=== PATIENT | female | born 1975 | race Caucasian/White ===

== ENCOUNTER → 2019-10-14 06:00 | Outpatient (REF) | payer BC, SELFPAY | LOC: ANHLAB 06:00 | PROVIDERS: PCP Internal Medicine; Visit Provider Nurse Practitioner | DX: L98.9 Disorder of the skin and subcutaneous tissue, unspecified (principal) | CPT/HCPCS: 88305; 88342 ==

== ENCOUNTER 2019-12-09 10:36 | Outpatient (CLI) | payer BC, SELFPAY ==
--- NOTE | ~2019-12-09 | MM_ITS ---
EXAMINATION: MM scrn eren implant BI w sanjuanita HISTORY: Screening mammogram TECHNIQUE: Craniocaudal and mediolateral oblique 3-D tomosynthesis images with implant displacement a nd synthetic 2-D images were generated. Craniocaudal and mediolateral oblique views of the breasts wi thout implant displacement were obtained using full field digital mammography. CAD analysis was submi tted and interpreted. COMPARISON: 08/20/2018, 08/21/2017, 04/02/2017, 12/09/2015 BREAST PARENCHYMAL COMPOSITION: The breasts are extremely dense, which lowers the sensitivity of mamm ography. FINDINGS: RIGHT BREAST: An asymmetry is present in the middle third of the inner breast best appreciated 4 cm f rom the nipple on the implant displaced craniocaudal tomosynthesis image 22/45. LEFT BREAST: There is no evidence of suspicious mass, calcification, or architectural distortion to s uggest malignancy. There has been no significant interval change. IMPRESSION: 1. Right breast asymmetry on the craniocaudal view. 2. Additional mammographic views and possible breast ultrasound are recommended. BI-RADS Category 0: Incomplete: Needs additional imaging evaluation. Reviewed, dictated and finalized at location A. IMPRESSION: 1. Right breast asymmetry on the craniocaudal view. 2. Additional mammographic views and possible breast ultrasound are recommended . BI-RADS Category 0: Incomplete: Needs additional imaging evaluation.
== END 2019-12-09 10:37 | disposition home or self-care (01) ==
LOC: ANHIMG 10:38
PROVIDERS: PCP Internal Medicine; Visit Provider Obstetrics & Gynecology
DX: Z12.31 Encounter for screening mammogram for malignant neoplasm of breast (principal); R92.8 Other abnormal and inconclusive findings on diagnostic imaging of breast
CPT/HCPCS: 77063; 77067

== ENCOUNTER 2019-12-30 11:37 | Outpatient (CLI) | payer BC, SELFPAY ==
--- NOTE | ~2019-12-30 | MMUS_ITS ---
EXAMINATION: MM diagnostic mammo implant RT, US breast RT limited HISTORY: Right breast asymmetry on screening mammogram TECHNIQUE: Additional 3-D tomosynthesis images of the right breast were performed and synthetic 2-D i mages were generated. CAD analysis was submitted and interpreted. High resolution limited right breas t ultrasound was performed. COMPARISON: 12/09/2019, 08/20/2018, 04/02/2017, 12/09/2015 FINDINGS: MAMMOGRAPHIC FINDINGS: There is a 7 mm oval, obscured, equal density mass in the middle third of the breast at the 4:00 loca tion 4 cm from the nipple. No suspicious calcification or architectural distortion are identified. ULTRASOUND: There is an 11 mm x 3 mm cyst at the 4:00 location 2 cm from the nipple corresponding to the mammogra phic finding in question. In addition, smaller complicated cysts are seen at the 12:00 and 1:00 locat ions 2 cm from the nipple. No suspicious cystic or solid mass is identified. The sonographically dete cted cysts have an appearance similar to those seen on left breast ultrasound performed at 2015. IMPRESSION: 1. Simple and complicated cysts of the right breast. No mammographic or sonographic evidence of malig aleah. 2. Recommend routine screening mammography in one year. BI-RADS Category 2: Benign finding(s). Reviewed, dictated and finalized at location A. IMPRESSION: 1. Simple and complicated cysts of the right breast. No mammographic or sonogra phic evidence of malignancy. 2. Recommend routine screening mammography in one year. BI-RADS Category 2: Benign finding(s).
== END 2019-12-30 11:38 | disposition home or self-care (01) ==
PROVIDERS: PCP Internal Medicine; Visit Provider Obstetrics & Gynecology
DX: R92.8 Other abnormal and inconclusive findings on diagnostic imaging of breast (principal)
CPT/HCPCS: 76642; 77065

== ENCOUNTER → 2020-02-17 08:45 | Outpatient (REF) | payer BC, SELFPAY | LOC: ANHLAB 08:45 | PROVIDERS: PCP Internal Medicine; Visit Provider Nurse Practitioner | DX: C44.319 Basal cell carcinoma of skin of other parts of face (principal) | CPT/HCPCS: 88305 ==

== ENCOUNTER → 2020-03-15 07:50 | Outpatient (REF) | payer BC, SELFPAY | LOC: ANHLAB 07:50 | PROVIDERS: PCP Internal Medicine; Visit Provider Nurse Practitioner | DX: C44.319 Basal cell carcinoma of skin of other parts of face (principal) | CPT/HCPCS: 88305; 88331 ==

== ENCOUNTER → 2021-02-15 08:24 | Outpatient (REF) | payer BC, SELFPAY | LOC: ANHLAB 08:24 | PROVIDERS: PCP Internal Medicine; Visit Provider Nurse Practitioner | DX: C44.612 Basal cell carcinoma of skin of right upper limb, including shoulder (principal) | CPT/HCPCS: 88305 ==

== ENCOUNTER → 2021-03-29 13:32 | Outpatient (REF) | payer BC, SELFPAY | LOC: ANHLAB 13:32 | PROVIDERS: PCP Internal Medicine; Visit Provider Nurse Practitioner | DX: D22.5 Melanocytic nevi of trunk (principal) | CPT/HCPCS: 88305 ==

== ENCOUNTER → 2021-04-18 07:30 | Outpatient (REF) | payer BC, SELFPAY | LOC: ANHLAB 07:30 | PROVIDERS: PCP Internal Medicine; Visit Provider Nurse Practitioner | DX: C44.319 Basal cell carcinoma of skin of other parts of face (principal); C44.612 Basal cell carcinoma of skin of right upper limb, including shoulder | CPT/HCPCS: 88305; 88331 ==

== ENCOUNTER 2021-05-31 11:12 | Outpatient (CLI) | payer BC, SELFPAY ==
--- NOTE | ~2021-05-31 | MMUS_ITS ---
EXAMINATION: MM diag eren implant BI w sanjuanita, US breast BI complete HISTORY: Left breast lump TECHNIQUE: Additional 3-D tomosynthesis images of the breasts were performed and synthetic 2-D images were generated. CAD analysis was submitted and interpreted. High resolution complete bilateral breas t ultrasound was performed. COMPARISON: Comparison to multiple prior studies sequentially, with oldest reviewed study dated 11/2016. BREAST PARENCHYMAL COMPOSITION: The breasts are extremely dense, which lowers the sensitivity of mamm ography. FINDINGS: MAMMOGRAPHIC FINDINGS: There are no suspicious masses, calcifications or architectural distortion in the right breast to sug gest malignancy. There is a mass in the mid outer aspect of the left breast near the area of palpable concern measuring approximately 1 cm. No suspicious calcifications or architectural distortion. ULTRASOUND: Right breast ultrasound: There are multiple cysts of the right breast, largest at 10:00, 6 cm from th e nipple measuring 9 mm maximum dimension. Bilateral breast implants are present. Left breast ultrasound: There are multiple simple and complicated cysts of the left breast, largest a t 12:00, 3 cm from the nipple measuring 9 mm. At 2:00 near the nipple there is an oval hypoechoic mas s with mixed posterior attenuation measuring 11 x 10 x 5 mm, likely benign complicated cyst. Cyst at 12:00, 3 cm from the nipple measuring 9 mm may correspond to the mammographic abnormality. IMPRESSION: 1. Probable benign left breast mass at 2:00 near the nipple measuring 11 mm maximum dimension. 2. Recommend 6 month follow-up diagnostic left mammogram and ultrasound. BI-RADS category 3, probably benign findings. Reviewed, dictated and finalized at location A. IMPRESSION: 1. Probable benign left breast mass at 2:00 near the nipple measuring 11 mm max imum dimension. 2. Recommend 6 month follow-up diagnostic left mammogram and ultrasound. BI-RADS category 3, probably benign findings.
== END 2021-05-31 11:13 | disposition home or self-care (01) ==
PROVIDERS: PCP Internal Medicine; Visit Provider Clinical Nurse Specialist
DX: N63.20 Unspecified lump in the left breast, unspecified quadrant (principal); R92.8 Other abnormal and inconclusive findings on diagnostic imaging of breast
CPT/HCPCS: 76641; 77062; 77066; G0279

== ENCOUNTER → 2021-07-04 16:04 | Outpatient (REF) | payer BC, SELFPAY | LOC: ANHLAB 16:04 | PROVIDERS: PCP Internal Medicine; Visit Provider Nurse Practitioner | DX: C44.529 Squamous cell carcinoma of skin of other part of trunk (principal) | CPT/HCPCS: 88305; 88342 ==

== ENCOUNTER → 2021-08-29 11:11 | Outpatient (REF) | payer BC, SELFPAY | LOC: ANHLAB 11:11 | PROVIDERS: PCP Internal Medicine; Visit Provider Nurse Practitioner | DX: C44.529 Squamous cell carcinoma of skin of other part of trunk (principal) | CPT/HCPCS: 88305; 88331 ==

== ENCOUNTER → 2021-08-30 15:53 | Outpatient (REF) | payer BC, SELFPAY | LOC: ANHLAB 15:53 | PROVIDERS: PCP Internal Medicine; Visit Provider Nurse Practitioner | DX: C44.602 Unspecified malignant neoplasm of skin of right upper limb, including shoulder (principal) | CPT/HCPCS: 88305 ==

== ENCOUNTER → 2021-10-24 10:11 | Outpatient (REF) | payer BC, SELFPAY | LOC: ANHLAB 10:11 | PROVIDERS: PCP Internal Medicine; Visit Provider Nurse Practitioner | DX: C44.319 Basal cell carcinoma of skin of other parts of face (principal) | CPT/HCPCS: 88305; 88331 ==

== ENCOUNTER 2022-08-08 07:00 | Outpatient (NON) | payer BC, SELFPAY | END 2022-08-08 07:01 | disposition home or self-care (01) | LOC: ANHLAB 08-09 15:10 | PROVIDERS: PCP Internal Medicine; Visit Provider Nurse Practitioner | DX: D22.5 Melanocytic nevi of trunk (principal) | CPT/HCPCS: 88305; 88342 ==

== ENCOUNTER 2022-08-29 13:05 | Outpatient (CLI) | payer BC, SELFPAY ==
[2022-08-29 19:18] LABS: Magnesium 2.1 mg/dL (1.6-2.3)
== END 2022-08-29 13:06 | disposition home or self-care (01) ==
LOC: ANHGOSHLAB 13:06
PROVIDERS: PCP Internal Medicine; Visit Provider Clinical Nurse Specialist
DX: E83.41 Hypermagnesemia (principal)
CPT/HCPCS: 36415; 83735

== ENCOUNTER 2022-09-05 14:23 | Outpatient (NON) | payer BC, SELFPAY | END 2022-09-05 14:24 | disposition home or self-care (01) | LOC: ANHLAB 09-06 14:23 | PROVIDERS: PCP Internal Medicine; Visit Provider Nurse Practitioner | DX: R13.10 Dysphagia, unspecified (principal) | CPT/HCPCS: 88305 ==

== ENCOUNTER 2022-10-17 00:49 | Day surgery (SDC) | payer BC, SELFPAY ==
[2022-10-03 15:04] VITALS: BMI 17.9
[2022-10-17 08:12] VITALS: BP 112/55; PULSE 72; RESP 18; TEMP 36.6; O2SAT 100; BMI 17.6
[2022-10-17] MEDS: LACTATED RINGERS 1,000 ML 150 ML IV CONT (08:17)
--- NOTE | 2022-10-17 08:41 | WPDANESEPPF ---
Anes - Initial Pre Proc Eval Procedure: Operation Date: 10/17/22 09:15 Proposed Procedures p Screening Colonoscopy - Eh Horton MD Date/Time: 10/17/22 08:41 Surgeon: Eh Horton MD Pre Op Diagnosis: neoplasm screening Patient Data Age: 47 Gender: F Height: 1.65 m Weight: 48.2 kg Last Vital Signs Temp 97.9 F 10/17/22 08:12 Pulse 72 10/17/22 08:12 Resp 18 10/17/22 08:12 BP 112/55 L 10/17/22 08:12 Pulse Ox 100 10/17/22 08:12 O2 Del Method Room Air 10/17/22 08:12 Allergies Allergy/AdvReac Type Severity Reaction Status Date / Time Sulfa (Sulfonamide Allergy Unknown Unknown Verified 10/17/22 08:11 Antibiotics) Home Medications Medication Instructions Recorded Confirmed Type cholecalciferol (vitamin D3) 125 125 mcg PO DAILY 10/03/22 10/03/22 History mcg (5,000 unit) tablet multivitamin with minerals-folic 1 tablet PO DAILY 10/03/22 10/03/22 History acid 0.4 mg tablet Patient hx anesthesia problems: none Family hx anesthesia problems: none Results Review: All pre-operative results and documents have been reviewed as part of the pre-operative evaluation. [facility] Past Medical History Medical History Basal cell carcinoma (BCC) Cyst of left ovary Migraine Thrombocytosis Surgical History Surgical History H/O section History of breast lump/mass excision Family History Family History Mother Family history of thyroid disease Hypertension Family history of coronary artery disease Depression Sibling Patient's brother is in good health Father Family history of coronary artery disease Acute myocardial infarction Other Family history of heart disease in male family member before age 55 Social History Social History (Updated 08/22/22 @ 07:59 by Dina Roach CMA) Smoking status: Never smoker Second hand tobacco smoke exposure: No Alcohol intake: current Drinks per week: 4 Substance use type: does not use Lack of Transportation: No Lack of Food: Never True Current Housing: I Have Housing Concerned About Future Housing: No Difficulty Paying Gas/Electric Bills: No Difficulty Paying for Meds: No Currently Unemployed: No Education: Bachelor's Degree Difficulty w/ Childcare or Family Care: No Living arrangements: with family Spiritual care concerns: No Anes - Eval Final PreProcedure Day of Procedure 10/17/22 08:41 Patient weight: normal Heart: regular rate and rhythm Lungs: clear to auscultation Airway: Mallampati scale class II Neurological: alert and oriented Last oral intake: >/= 8 hours ASA classification: II Emergent: no Anesthetic plan: proceed Anesthesia type and monitoring: general GIVS and standard monitoring Results Review: All pre-operative results and documents have been reviewed as part of the pre-operative evaluation. Informed Consent: The patient's anesthetic plan and its attendant risks and benefits were discussed with the patient/family/POA. Questions were solicited and answers provided to the satisfaction of the patient/family/POA.
--- NOTE | 2022-10-17 09:06 | PM.HPGS ---
History of Present Illness History of Present Illness Consent: Risks, benefits, and alternatives have been discussed and questions answered. Patient agrees to proceed with procedure. Chief complaint: neoplasm screening Narrative: Margaux Peace is a 47 year old female here for screening colonoscopy, she had one in her 20's but another reason Review of Systems Constitutional: Constitutional: Denies headache(s) and Denies weakness Eyes: Eyes: Denies blurry vision ENT: Reports Normal hearing present, Denies headache(s) and Denies neck pain Cardiovascular: Cardiovascular: Denies chest pain and Denies dyspnea Respiratory: Respiratory: Denies dyspnea Gastrointestinal: Gastrointestinal: Reports no additional gastrointestinal complaints Genitourinary: Genitourinary: Denies dysuria Musculoskeletal: Musculoskeletal: Denies neck pain Integumentary/Breasts: Skin/Breast: Denies dry skin Neurologic: Reports Normal hearing present, Denies headache(s) and Denies weakness Psychiatric: Psychiatric: Denies anxiety Endocrine: Endocrine: Denies change in body appearance Hematologic/Lymphatic: Hematologic/Lymphatic: Denies easy bleeding Allergic/Immunologic: Allergic/Immunologic: Denies urticaria PMFSH Past Medical History Medical History Basal cell carcinoma (BCC) Cyst of left ovary Migraine Thrombocytosis Surgical History Surgical History H/O section History of breast lump/mass excision Family History Family History Mother Family history of thyroid disease Hypertension Family history of coronary artery disease Depression Sibling Patient's brother is in good health Father Family history of coronary artery disease Acute myocardial infarction Other Family history of heart disease in male family member before age 55 Social History Social History (Updated 08/22/22 @ 07:59 by Dina Roach CMA) Smoking status: Never smoker Second hand tobacco smoke exposure: No Alcohol intake: current Drinks per week: 4 Substance use type: does not use Lack of Transportation: No Lack of Food: Never True Current Housing: I Have Housing Concerned About Future Housing: No Difficulty Paying Gas/Electric Bills: No Difficulty Paying for Meds: No Currently Unemployed: No Education: Bachelor's Degree Difficulty w/ Childcare or Family Care: No Living arrangements: with family Spiritual care concerns: No Meds Home Medications and Allergies Home Medications Medication Instructions Recorded Confirmed Type cholecalciferol (vitamin D3) 125 125 mcg PO DAILY 10/03/22 10/03/22 History mcg (5,000 unit) tablet multivitamin with minerals-folic 1 tablet PO DAILY 10/03/22 10/03/22 History acid 0.4 mg tablet Allergies Allergy/AdvReac Type Severity Reaction Status Date / Time Sulfa (Sulfonamide Allergy Unknown Unknown Verified 10/17/22 08:11 Antibiotics) Vital Signs Vital Signs - 24 hr 10/17/22 08:12 Temperature 97.9 F Pulse Rate 72 Respiratory Rate 18 Blood Pressure 112/55 L Pulse Oximetry 100 Oxygen Delivery Room Air Exam Const: General: comfortable and no acute distress HENMT: Face/Nose/Sinus: Normal nares present Eyes: General: appearance normal, both eyes and all related structures Neck: Neck: no JVD Resp: Auscultation: clear to auscultation bilaterally Cardio: Rate: regular rate Rhythm: regular rhythm GI: Inspection: non-distended GI Palp: Yes Soft to palpation Skin: General skin exam: normal color Neuro: General: gait normal Speech: normal speech Extrem: General: normal to inspection Psych: Mental Status: mental status grossly normal Assessment and Plan Assessment and plan (1) Screening for colon cancer: Code(s): Z12.11 - Encounter for screenin
[2022-10-17 09:24] VITALS: BP 114/59; PULSE 80; RESP 17; O2SAT 100
[2022-10-17 09:34] VITALS: BP 107/54; PULSE 73; RESP 16; O2SAT 100
[2022-10-17 09:44] VITALS: BP 107/58; PULSE 84; RESP 17; O2SAT 100
== END 2022-10-17 09:55 | disposition home or self-care (01) ==
PROVIDERS: PCP Internal Medicine; Visit Provider Internal Medicine Gastroenterology
PROC: 0DJD8ZZ Inspection of Lower Intestinal Tract, Via Natural or Artificial Opening Endoscopic (ICD-10-PCS; CPT 45378; principal; 2022-10-17 09:15)
DX: Z12.11 Encounter for screening for malignant neoplasm of colon (principal); K64.8 Other hemorrhoids
CPT/HCPCS: 45378; J2704; J7120

== ENCOUNTER 2023-05-22 09:00 | Outpatient (NON) | payer BC, SELFPAY | END 2023-05-22 09:01 | disposition home or self-care (01) | LOC: ANHLAB 05-23 11:43 | PROVIDERS: PCP Internal Medicine; Visit Provider Nurse Practitioner | DX: C44.319 Basal cell carcinoma of skin of other parts of face (principal) | CPT/HCPCS: 88305 ==

== ENCOUNTER 2023-06-18 13:16 | Outpatient (NON) | payer BC, SELFPAY | END 2023-06-18 13:17 | disposition home or self-care (01) | PROVIDERS: PCP Internal Medicine; Visit Provider Nurse Practitioner | DX: C44.319 Basal cell carcinoma of skin of other parts of face (principal) | CPT/HCPCS: 88305; 88331 ==